=== PATIENT | male | born 1980 | race Caucasian/White ===

== ENCOUNTER → 2019-05-04 | Outpatient (CLI) | payer BC ==
[2019-05-04 11:40] LABS: EOS # 0.2 (0.04-0.40); EOS % 2.8 % (0.0-4.0); HEMATOCRIT 44.2 % (42.0-52.0); HEMOGLOBIN 15.4 g/dL (13.5-18.0); LYMPH# 2.8 (1.50-4.00); MEAN CELL VOLUME 84 fl (78-100); MEAN CORPUSCULAR HEMOGLOBIN 29 pg (27-31); MEAN CORPUSCULAR HGB CONC 35 g/dL (33-37); MEAN PLATELET VOLUME 11.6 fl (7.4-10.4); MONO # 0.4 (0.20-0.80); NEU # 1.9 (1.40-6.50); PLATELET COUNT 225 K/mm3 (130-400); RED BLOOD COUNT 5.28 M/mm3 (4.20-5.60); RED CELL DISTRIBUTION WIDTH 13.2 % (11.5-14.5); WHITE BLOOD COUNT 5.4 K/mm3 (4.8-10.8)
[2019-05-04 11:50] LABS: ALBUMIN 4.3 g/dL (3.5-5.0); POTASSIUM 4.1 mmol/L (3.5-5.1)
[2019-05-04 11:51] LABS: CALCIUM 9.4 mg/dL (8.3-10.5)
[2019-05-04 11:53] LABS: TOTAL PROTEIN 7.6 g/dL (6.4-8.3)
[2019-05-04 11:55] LABS: TOTAL BILIRUBIN 0.3 mg/dL (0.2-1.2)
== END ==
LOC: LAB 11:28
PROVIDERS: Family Medicine
DX: Z00.00 Encounter for general adult medical examination without abnormal findings (principal); E78.5 Hyperlipidemia, unspecified; N50.9 Disorder of male genital organs, unspecified

== ENCOUNTER → 2019-08-21 | Outpatient (CLI) | payer BC | LOC: RAD 08:00 | DX: M79.89 Other specified soft tissue disorders (principal) ==

== ENCOUNTER → 2020-01-18 | Outpatient (CLI) | payer BC | LOC: LAB 11:43 | DX: J02.9 Acute pharyngitis, unspecified (principal); R06.02 Shortness of breath; R43.0 Anosmia; Z20.828 Contact with and (suspected) exposure to other viral communicable diseases ==

== ENCOUNTER → 2020-03-31 | Outpatient (CLI) | payer BC | LOC: LAB 11:55 | DX: J02.9 Acute pharyngitis, unspecified (principal); R06.02 Shortness of breath; J34.89 Other specified disorders of nose and nasal sinuses; Z20.828 Contact with and (suspected) exposure to other viral communicable diseases ==

== ENCOUNTER → 2021-02-11 | Outpatient (CLI) | payer BC | LOC: LAB 13:41 | DX: B34.9 Viral infection, unspecified (principal); Z20.822 Contact with and (suspected) exposure to COVID-19 ==

== ENCOUNTER → 2021-07-21 | Outpatient (CLI) | payer OTHER ==
[~2021-07-21] MED LIST: DECADRON 4MG TAB4 MG PO; GUAIFEN-CODEINE5 ML PO; LYMEPAK100 MG PO; PROAIR HFA0.09 MG/AC IH; PROMETH-CODEIN 65 ML PO; ZOFRAN ODT4 MG PO
== END ==
LOC: LAB 19:00
DX: U07.1 COVID-19 (principal)

== ENCOUNTER 2021-07-22 15:30 | Emergency (ER) | payer OTHER ==
[~2021-07-22] VITALS: Ht 170.2 cm; Wt 97.4 kg
[2021-07-22] MEDS ORDERED: PROAIR HFA0.09 MG/AC IH (16:06)
[2021-07-22] MEDS ORDERED: ZOFRAN ODT4 MG PO (16:06)
[2021-07-22] MEDS ORDERED: DECADRON 4MG TAB4 MG PO (16:06)
[2021-07-22] MEDS ORDERED: LYMEPAK100 MG PO (16:06)
[2021-07-22 16:37] LABS: BASO # 0.02 K/mm3 (0.02-0.10); EOS # 0.02 K/mm3 (0.04-0.40); EOS % 0.4 % (0.0-4.0); HEMATOCRIT 45.1 % (42.0-52.0); HEMOGLOBIN 15.4 g/dL (13.5-18.0); LYMPH# 1.19 K/mm3 (1.50-4.00); MEAN CELL VOLUME 87 fl (78-100); MEAN CORPUSCULAR HEMOGLOBIN 30 pg (27-31); MEAN CORPUSCULAR HGB CONC 34 g/dL (33-37); MEAN PLATELET VOLUME 12.3 fl (7.4-10.4); MONO # 0.27 K/mm3 (0.20-0.80); NEU # 3.87 K/mm3 (1.40-6.50); PLATELET COUNT 128 K/mm3 (130-400); RED BLOOD COUNT 5.21 M/mm3 (4.20-5.60); RED CELL DISTRIBUTION WIDTH 12.8 % (11.5-14.5); WHITE BLOOD COUNT 5.4 K/mm3 (4.8-10.8)
[2021-07-22 16:48] LABS: CALCIUM 8.7 mg/dL (8.3-10.5)
[2021-07-22 17:34] VITALS: BP 113/81
[2021-07-22] MEDS ORDERED: PROMETH-CODEIN 65 ML PO (17:38)
[2021-07-22] MEDS ORDERED: GUAIFEN-CODEINE5 ML PO (17:59)
== END 2021-07-22 17:36 | disposition home or self-care (01) ==
LOC: ED 15:30
PROVIDERS: Family Medicine
DX: U07.1 COVID-19 (principal); F17.210 Nicotine dependence, cigarettes, uncomplicated